=== PATIENT | female | born 1950 | race Caucasian/White ===

== ENCOUNTER 2021-07-20 07:25 | Outpatient (CLI) | payer MEDICARE, BC | END 2021-07-20 07:26 | disposition critical access hospital (66) | LOC: EMS 07:25 | DX: R47.02 Dysphasia (principal) | CPT/HCPCS: A0425; A0427 ==

== ENCOUNTER 2021-07-20 08:06 | Emergency (ER) | payer MEDICARE, BC ==
--- NOTE | 2021-07-20 08:19 | ED Physician Documentation ---
PD HPI ALTERED MENTAL STATUS - Stated complaint Stated Complaint: AMS - Chief complaint Chief Complaint: Neuro - History obtained from History obtained from: Family, EMS - History of Present Illness Timing - onset: Last night (about 5 pm yesterday, with headache and confused, some trouble speaking. Similar at bedtime but able to sleep overnight. Worse aphasic this morning awakening.) Timing - details: Abrupt onset, Still present Quality / character: Confused, Other (headache) Contributing factors: No: Anticoagulated, Diabetic, New medication, Recent illness, Recent injury Basline status: Alert and oriented X 3, Ambulatory Similar symptoms before: Has not had sx before Recently seen: Not recently seen Review of Systems Unable to obtain: AMS, Other (info from , who was in room with patient.) Constitutional: denies: Fever, Chills Nose: denies: Rhinorrhea / runny nose, Congestion Throat: denies: Sore throat Cardiac: denies: Chest pain / pressure Respiratory: denies: Dyspnea, Cough GI: denies: Abdominal Pain, Nausea, Vomiting, Diarrhea Skin: denies: Laceration (s) Neurologic: reports: Altered mental status (trouble speaking/nonsensical words structure (word salad).), Headache (onset last evening). denies: Focal weakness, Numbness PD PAST MEDICAL HISTORY - Past Medical History Cardiovascular: None Respiratory: None Neuro: None Endocrine/Autoimmune: None - Present Medications Home Medications: Ambulatory Orders Medication Instructions Recorded Confirmed No Known Home Medications 07/20/21 07/20/21 - Allergies Allergies/Adverse Reactions: Allergies Allergy/AdvReac Type Severity Reaction Status Date / Time No Known Drug Allergies Allergy Verified 07/20/21 08:16 - Living Situation Living Situation: reports: With spouse/s.o. Living Arrangement: reports: At home - Social History Does the pt smoke?: No Does the pt have substance abuse?: No PD ED PE NORMAL - Vitals Vital signs reviewed: Yes - General General: No acute distress, Well developed/nourished, Other (somewhat of a blank look when talking with her, but does follow commands slowly. ) - HEENT HEENT: Atraumatic, Moist mucous membranes, Pharynx benign - Neck Neck: Supple, no meningeal sign, No adenopathy - Cardiac Cardiac: RRR, No murmur - Respiratory Respiratory: Clear bilaterally - Abdomen Abdomen: Soft, Non tender - Neuro Neuro: Alert and oriented X 3 Eye Opening: Spontaneous Motor: Obeys Commands Verbal: Confused GCS Score: 14 NIHSS - Level of Consciousness Level of consciousness: (0) Alert, Keenly responsive LOC Questions: (1) Answers one Q correctly LOC Commands: (0) Performs both correctly - Gaze Best Gaze: (0) Normal - Visual Visual: (0) No loss - Facial Palsy Facial Palsy: (0) Normal, symmetrical movement - Motor Arms (both separate) Motor Arm (right): (0) No drift Motor Arm (left): (0) No drift - Motor Legs (both separate) Motor Leg (right): (0) No drift Motor Leg (left): (1) Drift - Limb Ataxia Limb Ataxia: (0) Absent - Sensory Sensory: (0) Normal - Best Language Best Language: (2) Severe aphasia - Dysarthria Dysarthria: (1) [id number] dysarthria - Extinction and Inattention (formally neg Extinction and inattention: (1) Visual,tactile,auditory,spatial, or personal inattention - Total Score/Results Total Score/Result: 6 Results - Vitals Vitals: Vital Signs - 24 hr 07/20/21 07/20/21 07/20/21 08:11 08:19 08:46 Temperature 37.4 C Heart Rate 76 77 67 Respiratory 16 29 H 18 Rate Blood Pressure 153/68 H 145/128 H 141/75 H O2 Saturation 96 99 100 07/20/21 07/20/21 07/20/21 09:46 10:00 10:30 Temperature 36.5 C Heart Rate 69 65 64 Respiratory 18 15 14 Rate Blood Pressure 138/67 H 141/75 H 137/69 H O2 Saturation 99 97 99 07/20/21 07/20/21 07/20/21 11:00 11:30 12:00 Temperature Heart Rate 62 62 62 Respiratory 13 13 16 Rate Blood Pressure 136/70 H 136/72 H 141/63 H O2 Saturation 98 98 99 07/20/21 07/20/21 12:30 13:00 Temperature 36.6 C Heart Rate 63 64 Respiratory 14 15 Rate Blood Pressure 136/68 H 136/70 H O2 Saturation 99 100 Oxygen O2 Source Room air - Labs Labs: Laboratory Tests 07/20/21 07/20/21 07/20/21 08:37 08:37 08:37 WBC 12.1 H RBC 4.52 Hgb 13.5 Hct 40.2 MCV 88.9 MCH 29.9 MCHC 33.6 RDW 13.6 Plt Count 289 MPV 10.7 Neut # (Auto) 11.1 H Lymph # (Auto) 0.6 L [place] # (Auto) 0.4 Eos # (Auto) 0.0 Baso # (Auto) 0.0 Absolute Nucleated RBC 0.00 Nucleated RBC % 0.0 PT INR APTT Sodium 132 L Potassium 3.8 Chloride 98 L Carbon Dioxide 22 Anion Gap 12.0 BUN 13 Creatinine 0.7 Estimated GFR (MDRD) 82 L Glucose 138 H Calcium 8.9 Magnesium 2.2 Total Bilirubin 1.3 H AST 24 ALT 17 Alkaline Phosphatase 54 Troponin I High Sens 4.7 Total Protein 7.1 Albumin 4.0 Globulin 3.1 Albumin/Globulin Ratio 1.3 Lipase 26 TSH Ethyl Alcohol < 5.0 SARS-CoV-2 (PCR) 07/20/21 07/20/21 07/20/21 08:37 09:57 10:05 WBC RBC Hgb Hct MCV MCH MCHC RDW Plt Count MPV Neut # (Auto) Lymph # (Auto) [place] # (Auto) Eos # (Auto) Baso # (Auto) Absolute Nucleated RBC Nucleated RBC % PT 11.2 INR 1.0 APTT 27.0 Sodium Potassium Chloride Carbon Dioxide Anion Gap BUN Creatinine Estimated GFR (MDRD) Glucose Calcium Magnesium Total Bilirubin AST ALT Alkaline Phosphatase Troponin I High Sens Total Protein Albumin Globulin Albumin/Globulin Ratio Lipase TSH 1.07 Ethyl Alcohol SARS-CoV-2 (PCR) NOT DETECTED - Rads (name of study) head/neck angio Radiology: Prelim report reviewed, Discussed with rads (left temporal ICH 4x4 cm (32 ml volume) with effacement and 3 mm midline shift.), See rad report PD MEDICAL DECISION MAKING - ED course Complexity details: reviewed results, re-evaluated patient (no change in neuro exam. Still alert, eyes opening, protected airway. ), considered differential (Has not needed any blood pressure intervention. Neuro status remains the same on repeat exams.), d/w patient, d/w family (spouse), d/w interventional sale consultant (s/w neurosurgery at [facility] (Had talked with stroke neuro at , but no beds yet available and Prov subsequently called with bed space).) - Critical Care Time(min): 35 Time Includes: Direct patient care, Reassess patient, Document care, Medical consult Data interpretation: Labs, See progress note Departure - Departure Disposition: 02 Transfer Acute Care Hosp Clinical Impression: Altered mental status Qualifiers: Altered mental status type: stupor Qualified Code(s): R40.1 - Stupor Intracerebral hemorrhage Qualifiers: Intracerebral hemorrhage etiology: nontraumatic Cerebral hemorrhage location: unspecified cerebral location Laterality: left Qualified Code(s): I61.9 - Nontraumatic intracerebral hemorrhage, unspecified Condition: Stable Record reviewed to determine appropriate education?: Yes Discharge Date/Time: 07/20/21 13:20
[2021-07-20] MEDS ORDERED: SODIUM CHLORIDE 0.9% 1,000 ML IV STA (08:33)
[2021-07-20 08:41] LABS: BASOPHILS % (AUTO) 0.1 %; EOSINOPHILS % (AUTO) 0.1 %; HCT - HEMATOCRIT 40.2 % (37.0-47.0); HGB - HEMOGLOBIN 13.5 g/dL (12.0-16.0); LYMPHOCYTES # (AUTO) 0.6 10^3/uL (1.5-3.5); LYMPHOCYTES % (AUTO) 5.3 %; MEAN CORPUSCULAR HEMOGLOBIN 29.9 pg (27.0-31.0); MEAN CORPUSCULAR HGB CONC 33.6 g/dL (32.0-36.0); MEAN CORPUSCULAR VOLUME 88.9 fL (81.0-99.0); MEAN PLATELET VOLUME 10.7 fL (7.9-10.8); MONOCYTES # (AUTO) 0.4 10^3/uL (0.0-1.0); NEUTROPHILS # (AUTO) 11.1 10^3/uL (1.5-6.6); NEUTROPHILS % (AUTO) 91.3 %; PLT - PLATELET COUNT 289 10^3/uL (130-450); RED BLOOD COUNT 4.52 10^6/uL (4.20-5.40); RED CELL DISTRIBUTION WIDTH 13.6 % (12.0-15.0); WHITE BLOOD COUNT 12.1 x10^3/uL (4.8-10.8)
[2021-07-20] MEDS ORDERED: IOVERSOL 320 100 ML VIAL IVP ONE ×2 (08:59→09:51)
[2021-07-20 09:06] LABS: ALBUMIN/GLOBULIN RATIO 1.3 (1.0-2.2); ALKALINE PHOSPHATASE 54 IU/L (42-121); ALT ALANINE AMINOTRANSFERASE 17 IU/L (10-60); AST ASPARTATE AMINOTRANSFERASE 24 IU/L (10-42); BILIRUBIN,TOTAL 1.3 mg/dL (0.2-1.0); BUN - BLOOD UREA NITROGEN 13 mg/dL (6-20); CALCIUM 8.9 mg/dL (8.5-10.3); CARBON DIOXIDE - CO2 22 mmol/L (21-32); CHLORIDE 98 mmol/L (101-111); CREATININE 0.7 mg/dL (0.4-1.0); ETOH - ETHANOL < 5.0 mg/dL; GFR - MDRD 82 (>89); GLUCOSE 138 mg/dL (70-100); LIPASE 26 U/L (22-51); MAGNESIUM 2.2 mg/dL (1.7-2.8); POTASSIUM 3.8 mmol/L (3.5-5.0); SODIUM 132 mmol/L (135-145); TOTAL PROTEIN 7.1 g/dL (6.7-8.2)
[2021-07-20] MEDS ORDERED: HYDROmorphone 0.5 MG/0.5 ML SYRINGE IVP STA (09:53)
--- NOTE | 2021-07-20 09:57 | CT Report ---
PROCEDURE: ANGIO HEAD W/WO INDICATIONS: L sided facial droop CONTRAST: IV CONTRAST: Optiray 320 ml: 80 PO CONTRAST: *NO PO CONTRAST TECHNIQUE: Precontrast 4.5 mm thick angled axial sections acquired from the foramen magnum to the vertex. Afte r the administration of intravenous contrast, 1 mm thick sections acquired through the [place] of [place] is. Postcontrast 4.5 mm thick sections then re-acquired from the foramen magnum to the vertex. 3-di mensional cggyafi-keajpihye-yhfpxzxima (MIP) and/or volume rendering reformats were acquired of the c entral intracranial vasculature. For radiation dose reduction, the following was used: automated ex posure control, adjustment of mA and/or kV according to patient size. COMPARISON: None. FINDINGS: Image quality: Excellent. Anterior circulation: Intracranial internal carotid arteries are normal in size and flow. The flow within the paired anterior cerebral arteries is normal and symmetric. The flow within the middle cer ebral arteries is normal and symmetric. The anterior communicating artery is seen. No aneurysms are seen. Posterior circulation: Visualized portions of the vertebral arteries demonstrate normal caliber, and join to form a normal appearing basilar artery. Flow within the posterior cerebral arteries is norm al and symmetric. No aneurysms are seen. CSF spaces: Effacement of the left lateral ventricle. Basal cisterns are patent. No extra-axial flu id collections. No intraventricular blood products are seen. Small calcification in the fourth ventri kusum. Brain: Hyperdense blood products in the left temporal lobe measuring 4.3 x 4.3 x 3.3 cm, estimated v olume of 32 cc. No enhancement is appreciated in this region. A blood vessel is seen coursing through the area of hemorrhage. There is effacement of the left lateral ventricle. There is approximately 0. 3 cm left rightward midline shift. There is mild edema surrounding this area of hemorrhage. No large area of hypodensity in a vascular territory. Skull and face: Calvarium and facial bones appear intact, without suspicious lesions. Sinuses: Visualized sinuses and mastoids are clear. IMPRESSION: 1. 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 Estimated vol ume of blood products 32 cc. 2. Effacement of the left lateral ventricle and 0.3 cm left to rightward midline shift. Results were communicated to Dr. Adam Julien at 07/20/2021 8:52 AM [facility]. Reviewed by: Douglas Mckinney MD on 07/20/2021 8:56 AM [facility] Approved by: Douglas Mckinney MD on 07/20/2021 8:56 AM [facility] Station ID: [id number]
--- NOTE | 2021-07-20 10:04 | CT Report ---
PROCEDURE: ANGIO NECK W INDICATIONS: L sided facial droop, L neck pain CONTRAST: IV CONTRAST: Optiray 320 ml: 80 PO CONTRAST: *NO PO CONTRAST TECHNIQUE: After the administration of intravenous contrast, 1.5 mm axial sections acquired from the aortic arch to the [place] of [place]. Coronal 3-D maximum intensity projection (MIP) and/or volume rendering ref ormats were then performed. For radiation dose reduction, the following was used: automated exposur e control, adjustment of mA and/or kV according to patient size. COMPARISON: Same day noncontrast head and CTA head. FINDINGS: Image quality: Excellent. Carotid system: The great vessels demonstrate a conventional anatomy as they arise from the aortic a rc. The origins of the common carotid arteries appear patent. The common carotid arteries demonstr ate normal calibers and courses. The bifurcation regions appear normal bilaterally. No calcified pl aque at the carotid bulbs. The internal carotid arteries demonstrate normal caliber and course. Posterior circulation: The origins of the vertebral arteries appear patent. The more superior porti ons of the vertebral arteries demonstrate normal course and caliber. They join to form a normal appe aring basilar artery. Left temporal lobe large hemorrhagic focus. No large vessel occlusion. origin of the left CARPET JOURNEYMAN. Dominant right posterior communicating artery. Mass effect in the left cerebral hemisphere with effac ement of the left lateral ventricle. Soft tissues: Visualized neck soft tissues demonstrate no suspicious abnormalities. The thyroid is normal in size and there are no incidental findings. Bones: No suspicious bony lesions. Mild degenerative change in the cervical spine. Visualized cervi charanjit spine appears normally aligned. IMPRESSION: 1. No large vessel occlusion identified. 2. No critical stenosis in the neck. 3. Large area of hemorrhage in the left temporal lobe. Please see separately dictated CTA head. The estimate of stenosis included in the report of the imaging study was calculated using the NASCET method Reviewed by: Douglas Mckinney MD on 07/20/2021 9:03 AM [facility] Approved by: Douglas Mckinney MD on 07/20/2021 9:03 AM [facility] Station ID: [id number]
[2021-07-20 10:17] LABS: PT - PROTHROMBIN TIME 11.2 secs (9.9-12.6)
[2021-07-20 13:04] VITALS: BP 136/70
== END 2021-07-20 13:20 | disposition short-term general hospital (02) ==
LOC: EDUNIT# → ED 08:06
DX: I61.9 Nontraumatic intracerebral hemorrhage, unspecified (principal); Z20.822 Contact with and (suspected) exposure to COVID-19
CPT/HCPCS: 36415; 70496; 70498; 80053; 83690; 83735; 84443; 84484; 85025; 85610; 85730; 87635; 93005; 96374; 99285; 99291; G0480; J1170; Q9967; 80320